=== PATIENT | female | born 1970 | race Caucasian/White ===

== ENCOUNTER 2019-12-25 00:49 | Outpatient (CLI) | payer SELFPAY ==
[2019-12-25 22:45] LABS: SARS-CoV-2 RNA PCR Negative
== END 2019-12-25 00:50 | disposition home or self-care (01) ==
LOC: ANHCOVIDDT 00:49
PROVIDERS: Visit Provider Surgery Plastic and Reconstructive Surgery
DX: Z01.812 Encounter for preprocedural laboratory examination (principal); Z11.59 Encounter for screening for other viral diseases
CPT/HCPCS: 87635; C9803; U0003

== ENCOUNTER 2019-12-27 01:18 | Day surgery (SDC) | payer OTHER, SELFPAY ==
[2019-12-13 15:01] VITALS: BMI 20.3
[2019-12-27] VITALS (11 sets, daily range): BP systolic 91–133; BP diastolic 50–81; PULSE 71–111; RESP 14–20; TEMP 36.3–36.5; O2SAT 99–100
--- NOTE | 2019-12-27 06:50 | WPDHPUPDATE1 ---
History and Physical Update Update Date/Time: 12/27/19 06:50 History and Physical has been reviewed, including an updated exam of the patient. There are NO changes in the patient's condition. Risks, benefits, and alternatives have been discussed and questions answered. Patient agrees to proceed with procedure.
--- NOTE | 2019-12-27 07:03 | PM.PROC ---
Procedure Note - Detailed Date of procedure: 12/27/19 Pre-op diagnosis: Micromastia Post-op diagnosis: same Procedure performed: Bilateral augmentation mammoplasty Description of procedure: She is here today for bilateral breast augmentation. Previously and again today the risks, benefits, alternatives were discussed in extensive detail. I wanted her to be very realistic about the risks involved as well as expectations. We discussed aftercare and what to monitor for. Recently she had an episode poison jose. Tuesday she had a steroid shot for the poison jose. She states her symptoms are dramatically improved. Again today we had a lengthy discussion about her options of delaying versus proceeding. I was very up front and honest about the risks of proceeding verses delay. I explained she should not feel pressure to make a decision from my perspective, we will work with her however she would like to proceed. She understands I cannot really provide data of how much her recent steroid shot and recent poison jose increases her risks. At this point the poison jose has essentially cleared and she is doing well. She states she is willing to accept these risks and would like proceed. I was very up front this can lead to loss of implant, infection, wound breakdown, and need for additional procedures all of which would be at her expense. She understands this and would like proceed. Made sure answered all of her questions to her satisfaction today and consent was obtained. Marked in the preoperative holding area with their verification. The patient was taken to the operating room placed supine on the operating table. Anesthesia was provided by anesthesiology. A surgical time-out was taken. We cleansed the skin and 1% lidocaine and 0.25% Marcaine with epinephrine was used anesthetize as a field block. She was prepped and draped in a standard sterile fashion. Tegaderm nipple Resendiz were placed. A 15 blade used to make an incision along the inframammary fold. Dissection was continued at 45 degree angle until the chest wall as identified. I incised the pectoralis major along its inferior border and completely released the inferior border leaving the medial border intact. I created a subpectoral pocket in the appropriate dimensions based on our preoperative planning for the implant. I then copiously irrigated with saline solution and verified a strict hemostasis. Next the use a triple antibiotic and Betadine containing solution to irrigate the pocket. I washed my gloves with the triple antibiotic and Betadine solution. We washed the implant immediately upon opening it with this solution and only opened it when we needed it. I used implant funnel and no-touch technique. The implant was introduced into the pocket using the funnel. Having verified positioning of the implant this was closed using 2-0 Vicryl followed by 3-0 Monocryl in a running subcuticular 4-0 Monocryl followed by tissue glue. Fluffs, Zhao wrap, and surgical bra were placed. Patient was awoke and taken to PACU without difficulty. All instrument sponge counts were correct at the end of the case. Implants: Bilateral Silicone Natrelle Inspira SoftTouch Right: REF SSLP-300 SN [id number] Left: REF SSLP-300 SN [id number] Anesthesia: GLMA Surgeon: Jose J Luis MD Estimated blood loss (mL): 5 Drains: No Packing: No Pathology: none sent Complications: No immediate complications Condition: stable Disposition: PACU Findings: Pre-operative asymmetry identified by myself / patient. She is aware she will always have asymmetry. Right Dual plane 1 Left Dual plane 2/3
[2019-12-27] MEDS: LACTATED RINGERS 1,000 ML 30 ML IV CONT ×4 (07:30→11:07)
--- NOTE | 2019-12-27 08:03 | WPDANESEPPF ---
Anes - Initial Pre Proc Eval Procedure: Operation Date: 12/27/19 08:30 Proposed Procedures p Bilateral Augmentation Mammoplasty - Jose J Luis MD Date/Time: 12/27/19 08:03 Surgeon: Jose J Luis MD Pre Op Diagnosis: Micromastia Patient Data Age: 49 Gender: F Height: 5 ft 7 in Weight: 58.97 kg Last Vital Signs Temp 36.5 C 12/27/19 07:15 Pulse 80 12/27/19 07:15 BP 110/65 12/27/19 07:15 Pulse Ox 100 12/27/19 07:15 Allergies Allergy/AdvReac Type Severity Reaction Status Date / Time doxycycline Allergy Rash Verified 12/13/19 15:03 Home Medications Medication Instructions Recorded Confirmed Type docusate sodium 100 mg capsule 100 mg PO DAILY #14 cap 12/25/19 Rx ondansetron HCl 4 mg tablet 4 mg PO Q8H #28 tablet 12/25/19 Rx Patient hx anesthesia problems: post op nausea/vomiting Family hx anesthesia problems: none [facility] Surgical History Surgical History (Updated 12/27/19 @ 08:03 by Renan Ndiaye MD) History of bunionectomy History of section Social History Social History Smoking status: Never smoker Alcohol intake: current Drinks per week: 2 Spiritual care concerns: No Anes - Eval Final PreProcedure Day of Procedure 12/27/19 08:03 Patient weight: normal Heart: regular rate and rhythm Lungs: clear to auscultation Airway: Mallampati scale class 1 Neurological: alert and oriented Last oral intake: >/= 8 hours ASA classification: I Emergent: no Anesthetic plan: proceed Anesthesia type and monitoring: general LMA and standard monitoring Informed Consent: The patient's anesthetic plan and its attendant risks and benefits were discussed with the patient/family/POA. Questions were solicited and answers provided to the satisfaction of the patient/family/POA.
[2019-12-27] MEDS: SCOPOLAMINE 1.5 MG PATCH TRANSDERM (08:11)
[2019-12-27] MEDS: ceFAZolin 2 GM/D5W 50 ML 2 GM/50 ML BAG IVPB (08:41)
[2019-12-27] MEDS: LIDO 1%/EPINEPHRINE 1:100,000 20 ML VIAL 40 ML INFILTRATE (09:11)
[2019-12-27] MEDS: ONDANSETRON INJ 4 MG/2 ML VIAL IV PUSH ×2 (10:23→11:02)
--- NOTE | 2019-12-27 11:09 | SUR.PHASEII ---
DR GREER OKAMY'D TO GIVE 2ND DOSE OF ZOFRAN FOR PERSISTENT NAUSEA. PT RESTING WITH LIGHT OFF, EYES CLOSED; ABLE TO TOLERATE SODA AND CRACKERS. PAIN 2/10.
[2019-12-27] MEDS: diphenhydrAMINE HCl INJ 50 MG/ML VIAL 25 MG IV PUSH (11:28)
--- NOTE | 2019-12-27 11:58 | SUR.PHASEII ---
DR GREER CALLED FOR PT'S PERSISTENT EMESIS. PHERGAN AND PEPCID ORDERED.
[2019-12-27] MEDS: FAMOTIDINE 20 MG/2 ML VIAL IV PUSH (12:06)
[2019-12-27] MEDS: PROMETHAZINE HCL 25 MG/ML AMPUL 12.5 MG IV PUSH (12:09)
[2019-12-27] MEDS: IBUPROFEN 400 MG TABLET PO (13:06)
--- NOTE | 2019-12-27 13:17 | SUR.PHASEII ---
DR. SPENCE CALLED RE: NO PAIN MED ORDERED. PT'S HOME PHARMACY CALLED TO VERIFY AND THEY SAID NO PAIN MED HAD BEEN ORDERED. MESSAGE LEFT ON DR. SPENCE'S CELL PHONE ASKING HIM TO CALL BACK. NO PATIENT INFORMATION CITED ON MESSAGE.
== END 2019-12-27 13:20 | disposition home or self-care (01) ==
PROVIDERS: PCP Family Medicine; Visit Provider Surgery Plastic and Reconstructive Surgery
PROC: (CPT 19325; principal; 2019-12-27 08:30)
DX: Z41.1 Encounter for cosmetic surgery (principal); N64.82 Hypoplasia of breast
CPT/HCPCS: 19325; A9270; J0131; J0690; J1100; J1170; J1200; J1580; J2250; J2405; J2550; J2704; J3010; J7120